=== PATIENT | female | born 1995 | race Caucasian/White ===

== ENCOUNTER 2016-07-20 16:58 | Emergency (ER) | payer OTHER ==
[2016-07-20 17:07] VITALS: BP 165/92; PULSE 84; RESP 16; TEMP 97.7; O2SAT 98
--- NOTE | 2016-07-20 17:12 | EDPHY ---
H & P Stated Complaint: R rib pain after falling down icey steps friday Time Seen by Provider: 07/20/16 17:07 HPI/ROS: CHIEF COMPLAINT: Right rib pain following mechanical fall HISTORY OF PRESENT ILLNESS: The patient presents the emergency department with complaints of right rib pain following a mechanical fall. The patient apparently slipped on an icy stair case on Friday. She has had progressively worsening right lateral rib pain since that fall. The patient denies significant shortness of breath. She did not strike her head. She has no complaints of back pain or extremity pain. Her pain is moderate in nature and worsened with movement. REVIEW OF SYSTEMS: A comprehensive 10 point review of systems is otherwise negative aside from elements mentioned in the history of present illness. Source: Patient Exam Limitations: No limitations - Personal History LMP (Females 10-55): 15-21 Days Ago Current Tetanus/Diphtheria Vaccine: Unsure - Medical/Surgical History Hx Asthma: No Hx Chronic Respiratory Disease: No Hx Diabetes: No Hx Cardiac Disease: No Hx Renal Disease: No Hx Cirrhosis: No Hx Alcoholism: No Hx HIV/AIDS: No Hx Splenectomy or Spleen Trauma: No Other PMH: denies - Social History Smoking Status: Never smoked - Physical Exam Exam: General Appearance: Alert, no distress Head: Atraumatic Eyes: Pupils equal, round, reactive ENT, Mouth: No hemotympanum, no oral trauma Neck: Nontender, trachea midline Respiratory: Tenderness to palpation noted in the right mid axillary line along the lower thoracic ribs, no subcutaneous emphysema Cardiovascular: Regular rate and rhythm Abdomen: Abdomen is soft and nontender, pelvis stable Skin: No lacerations, No abrasion Back: No midline T/L/S pain Extremities: Nontender, full range of motion Constitutional: Initial Vital Signs Temperature (C) 36.5 C 07/20/16 17:05 Heart Rate 84 07/20/16 17:05 Respiratory Rate 16 07/20/16 17:05 Blood Pressure 165/92 H 07/20/16 17:05 O2 Sat (%) 98 07/20/16 17:05 O2 Delivery Mode Room Air Allergies/Adverse Reactions: No Known Allergies Allergy (Unverified 07/20/16 17:04) Home Medications: Medication Instructions Recorded Hydrocodone/APAP 5/325 [[place] 1 - 2 each PO Q6 PRN #20 tab 07/20/16 5/325] VYVANSE 07/20/16 Xanax 07/20/16 Medical Decision Making - Diagnostics Imaging: Chest x-ray AP: Images reviewed by myself, negative for obvious rib fracture or pneumothorax. No evidence of hemothorax. ED Course/Re-evaluation: The patient presents to the ED with isolated right rib pain following a mechanical fall. She is hemodynamically stable. Patient's chest x-ray demonstrates no obvious displaced rib fracture or pneumothorax. She is hemodynamically stable. She has been informed that she certainly could have a nondisplaced rib fracture. She will be discharged home with customary aftercare instructions and given strict return precautions. Differential Diagnosis: Differential diagnosis considered includes rib fracture, chest wall contusion, pneumothorax, hemothorax Departure - Departure Disposition: Home, Routine, Self-Care Clinical Impression: Rib injury Condition: Fair Instructions: Rib Fracture (ED) Additional Instructions: 1. Take Ibuprofen or Motrin 600 mg by mouth three times a day. 2. [place] as needed for severe pain. 3. Please return to the ED for markedly worsening symptoms or other concerns. Referrals: OUT OF STATE,. [Primary Care Provider] - As per Instructions Prescriptions: Hydrocodone/APAP 5/325 [[place] 5/325] 1 - 2 each PO Q6 PRN #20 tab PRN Reason: for pain
--- NOTE | 2016-07-20 17:39 | DX ---
Chest, PA Upright View, at 5:20 p.m. Clinical History: 20-year-old female with dyspnea and a right rib injury on Friday. Comparison Study: None. Findings: The cardiac and mediastinal silhouette is normal in size. There is no focal infiltrate, ate lectasis, pleural effusion, peripheral interstitial edema, or pneumothorax. The osseous structures ar e age-appropriate, with no rib fracture observed. A right nipple preceding is present. Impression: Normal.
== END 2016-07-20 17:42 | disposition home or self-care (01) ==
LOC: EDBD 16:58
DX: S29.9XXA Unspecified injury of thorax, initial encounter (principal); W10.8XXA Fall (on) (from) other stairs and steps, initial encounter